=== PATIENT | female | born 1955 | race Caucasian/White ===

== ENCOUNTER 2025-05-12 15:12 | Outpatient (CLI) | payer MEDICARE, OTHER, SELFPAY ==
[2025-05-12 15:49] LABS: Hematocrit 40.4 % (37.0-47.0); Hemoglobin 13.3 g/dL (12.0-15.0); Mean Corpuscular HGB Conc 32.9 g/dl (32-36); Mean Corpuscular Hemoglobin 29.7 pg (26-34); Mean Corpuscular Volume 90.2 fl (80-100); Platelet Count Result 343 k/mm3 (150-375); Red Blood Count 4.48 M/mm3 (4.2-5.4); White Blood Count 10.6 K/mm3 (4.5-10.0)
[2025-05-12 16:00] LABS: Anion Gap 8 mmol/L (4-12); Blood Urea Nitrogen 21 mg/dL (7-17); Calcium 9.6 mg/dL (8.4-10.2); Carbon Dioxide 29 mmol/L (22-30); Chloride 103 mmol/L (98-107); Estimated Glomerular Filt Rate > 60; Glucose 97 mg/dL (65-110); Potassium 4.0 mmol/L (3.4-5.0); Sodium 140 mmol/L (137-145)
--- OUTSIDE RECORDS SUMMARY | 2025-05-12 17:25 | XMS_ITS | Encounter Summary ---
Author Organization [facility] Address [address] [place] [address] Care Team Providers Care Grating Machine Operator Name Role Phone None, Physician Primary Care Provider Unavailabl e Encounter Details Date Type Department Care Team (Late st Contact Info) Description 04/22/2025 Results Follow-Up ER at [address] [address] Hafsa Molina PA-C [address] [place] [phone] Social History Tobacco Use Types Packs/Day Years Used Date Smoking Tobacco: Never Assessed Comments Unknown Sex and Gender Information Value Date Recorded Sex Assigned at Female 04/21/2025 10:55 AM CDT Legal Sex Female 4:46 AM RESEARCH QUALITY ASSURANCE ANALYST Gender Identity Female 04/21/2025 10:55 AM CDT Sexual Orientation Not on file documented as of this encounter Plan of Treatment Not on file documented as of this encounter Visit Diagnoses Not on filedocumented in this encounter Care Teams Grating Machine Operator Relationship Specialty Start Date End Date None, Physician PCP - General 04/21/25 documented as of this encounter
--- OUTSIDE RECORDS SUMMARY | 2025-05-12 17:25 | XMS_ITS | Clinical Summary ---
Author Organization [facility] Address [address] [place] [address] Care Team Providers Care Ski Binding Fitter And Repairer Name Role Phone FinneyAndrew martinez Primary Care Provider [phone] Allergies No known active allergies Medications ACID LOW VOLTAGE ELECTRICIAN, CIMETIDINE, ORAL Take 1 Tablet by mouth daily. prn Active fluticasone propionate (FLONASE) 50 mcg/spray [place], Suspension nasal inhaler Administer 2 Sprays in each nostril daily. Active fexofenadine (SAMMI) 180 mg tablet Take 180 mg by mouth daily. Active CALCIUM ACETATE ORAL Take by mouth daily. Active multivitamin (DAILY-KERRY) tablet Take 1 Tablet by mouth daily. Active cloNIDine HCL (CATAPRES) 0.1 mg tabletIndicati ons:Essential hypertension, benign TAKE 1 TABLET BY MOUTH THREE TIMES A DAY 300 Tablet 3 10/05/19 25 Active hydroCHLOROthi azide (MICROZIDE) 12.5 mg capsuleIndicat ions:Essential hypertension, benign TAKE 1 CAPSULE BY MOUTH EVERY DAY 100 Capsule 3 01/01/20 25 Active losartan (COZAAR) 100 mg tabletIndicati ons:Essential hypertension, benign TAKE 1 TABLET BY MOUTH EVERY DAY 100 Tablet 3 01/01/20 25 Active dilTIAZem (CARDIZEM CD) 360 mg Controlled Delivery 24 hour capsuleIndicat ions:Essential hypertension, benign TAKE 1 CAPSULE BY MOUTH EVERY DAY 100 Capsule 3 03/29/20 25 Active magnesium OXIDE (MAG-OX) 400 mg (241.3 mg magnesium) tabletIndicati ons:Paresthesi a of both legs TAKE 1 TABLET BY MOUTH EVERYDAY AT BEDTIME 90 Tablet 04/15/20 25 Active magnesium oxide 400 mg magnesium TabletIndicati ons:Paresthesi a of both legs Take 400 mg by mouth daily at bedtime. 90 Tablet 5 04/14/20 24 025 Discontinued Active Problems Problem Noted Date Diagnosed Date White coat syndrome with diagnosis of hypertensi on 12/10/2023 Mixed hyperlipidemia 05/24/2020 Essential hypertension, benign 03/06/2016 Environmental allergies 03/06/2016 Resolved Problems Problem Noted Date Diagnosed Date Resolved Date Prediabetes 06/11/2019 06/09/2024 Overview (06/11/2019): Lab Results Component Value Date/Time HGBA1C 5.8 (H) 06/10/2019 09:04 AM Encounters Date Type Department Care Team Description 05/10/2025 External Device Data STL ABSTRACTION Provider, Abstract 05/03/2025 External Device Data [facility] ABSTRACTION Provider, Abstract 04/21/[address] [address] Andrew Finney, Remote Monitoring 04/15/[address] [address] Andrew Finney, Paresthesia of both legs 03/29/[address] [address] Andrew Finney, Essential hypertension, benign 03/02/2025 External Device Data [facility] ABSTRACTION Provider, Abstract 03/01/2025 External Device Data [facility] ABSTRACTION Provider, Abstract from Last 3 Months Immunizations Immunization Administration Dates Next Due INFLUENZA VACCINE HIGH DOSE QUADRIVALENT 65 YR UP PF IM 04/28/2023,06/20/2021,05/24/2020 INFLUENZA VACCINE HIGH DOSE TRIVALENT SPLIT VIRUS, (65 YR UP), 0.5ML (PF), IM 06/09/2024 Skin Test TB 12/09/2014 Family History Medical History Relation Name Comments Healthy Daughter 1 none Uterine or Endometrial Cance r, Not Including Cervical Daughter 1 none Healthy Daughter 2 Other Father Rubin trejo murdered Stroke Maternal Grandmother Breast Cancer Mother luana trejo Hypertension Mother luana trejo Ovarian Cancer Mother luana trejo Uterine Cancer Mother luana trejo Uterine or Endometrial Cance r, Not Including Cervical Mother luana trejo Breast Cancer Paternal Grandmother karolina trejo Cancer Paternal Grandmother karolina trejo Uterine or Endometrial Cance r, Not Including Cervical Paternal Grandmother karolina trejo Breast Cancer Sister Cheyenne Song Uterine or Endometrial Cance r, Not Including Cervical Sister Cheyenne Song Healthy Son Colon Cancer Neg Hx Relation Name Status Comments Daughter 1 none Alive Daughter 2 Alive Father Rubin trejo Maternal Grandfather Maternal Grandmother Mother luana trejo Alive Paternal Grandfather Paternal Grandmother karolina trejo Sister Cheyenne Song Son Alive Social History Tobacco Use Types Packs/Day Years Used Date Smoking Tobacco: Never Smokeless Tobacco: Never Tobacco Cessation:Counseling Given: Not Answered Alcohol Use Standard Drinks/Week Comments Not Currently 0 (1 standard drink = 0.6 oz pur e alcohol) Feeling Safe Answer Date Recorded Within the last year, have y ou been afraid of your partner or ex-partner? No 02/11/2024 Emotionally Abused Not on file 02/11/2024 Within the last year, have y ou been kicked, hit, slapped, or otherwise physically hurt by your partner or ex-partner? No 02/11/2024 Sexually Abused Not on file 02/11/2024 Financial Resource Strain Answer Date R ecorded How hard is it for you to pa y for the very basics like food, housing, medical care, and heating? Not hard at all 08/27/2022 Food Insecurity Answer Date Recorded In the past 12 months, have you worried that your food would run out before you had money to buy more? Never true 08/27/2022 In the past 12 months, did y ou run out of food and didn't have money to buy more? Never true 08/27/2022 Transportation Needs Answer Date Record ed In the past 12 months, has l ack of transportation kept you from medical appointments or from getting medications? No 08/27/2022 Lack of Transportation (Non-Medical) Not on file 08/27/2022 Feeling Safe Answer Date Recorded Do you worry about feeling s afe and happy with the people in your life? No 09/13/2024 Feeling Safe Answer Date Recorded Are you in a relationship wi th someone who hurts you emotionally and/or physically? No 01/14/2024 Comments No Sex and Gender Information Value Date Recorded Sex Assigned at Not on file Legal Sex Female 5:48 PM CDT Gender Identity Not on file Sexual Orientation Not on file Last Filed Vital Signs Vital Sign Reading Time Taken Comments Blood Pressure 153/76 12/09/2024 8:50 AM CDT Pulse 84 12/09/2024 8:37 AM CDT Temperature 36.6 C (97.8 F) 12/09/2024 8:37 AM CDT Respiratory Rate 18 12/09/2024 8:37 AM CDT Oxygen Saturation 96% 12/09/2024 8:37 AM CDT Inhaled Oxygen Concentration - - Weight 54 kg (119 lb) 12/09/2024 8:37 AM CDT Height 154.9 cm (5' 1) 12/09/2024 8:37 AM CDT Body Mass Index 22.48 12/09/2024 8:37 AM CDT Plan of Treatment Upcoming Encounters Date Type Department Care Team (Late st Contact Info) Description 06/10/2025 8:00 AM CDT Office Visit [facility] Family Medicine [place] [address] [place] [address] Viola Mcclain PA-C [address] [place] [address] 09/14/2025 12:00 PM HOTEL BREAKFAST ATTENDANT Appointment [facility] [address] [place] [address] Marisa Delacruz, ROSEMARIE [address] [place] [address] 09/14/2025 12:45 PM HOTEL BREAKFAST ATTENDANT Office Visit [facility] Breast Surgery [address] [place] [address] Marisa Delacruz, ROSEMARIE [address] [place] [address] Health Maintenance Due Date Last Done Comments DTAP/TDAP/TD VACCINES (1 - Tdap) 1972 FIT/FOBT Q 1 year 1998 Flex Sig/CT Colonography Q 5 years 1998 PNEUMOCOCCAL VACCINE 50+ YEA RS (1 of 1 - PCV) 2003 ZOSTER VACCINE (1 of 2) 2003 OSTEOPOROSIS SCREENING 2018 Traditional Medicare (ACO) A nnual Wellness Visit 12/10/2024 12/10/2023, 08/27/2022 INFLUENZA VACCINE (#1) 2025 , 04/28/2023, 06/20/2021, Additional history exists BREAST CANCER SCREENING 09/13/2025 09/13/19, 02/11/2024, 08/15/2023, Additional history exists FIT-DNA Q 3 years 12/23/2026 12/24/2023 COLORECTAL SCREENING 01/13/2027 01/14/2024, 01/14/20 24 Colorectal Cancer Screening 01/13/2027 RSV VACCINE (60+ or ) (1 - 1-dose 75+ series) 2028 Procedures Procedure Name Priority Date/Time Associated Diagnosis Comments MAMMO 3D BRIA DIAGNOSTIC BILAT W OR WO CAD Routine 09/13/2024 12:57 PM HOTEL BREAKFAST ATTENDANT Abnormal mammogram of right breast COLONOSCOPY REPORT 01/14/2024 8: 48 AM CDT COLON CANCER SCREEN, STOOL DNA Routine 12/24/2023 7:30 PM CDT Encounter for colorectal cancer screening from Last 3 Months or Most Recently Relevant to Health Maintenance Results * MAMMO 3D BRIA DIAGNOSTIC BILAT W OR WO CAD (09/13/2024 12:57 PM HOTEL BREAKFAST ATTENDANT) Anatomical Region Laterality Modality Breast Bilateral Mammography 09/13/2024 12:5 8 PM HOTEL BREAKFAST ATTENDANT Impressions 09/13/2024 1:11 PM HOTEL BREAKFAST ATTENDANT IMPRESSION: No evidence of malignancy in either breast. Normal morphology intramammary lymph node in the upper outer right breast is unchanged and benign. OVERALL FINAL ASSESSMENT: BI-RADS Category 2: Benign finding(s). RECOMMENDATION: Bilateral screening mammogram in one year. Findings discussed with the patient. DICTATION LOCATION: [facility] Becerra Narrative 09/13/2024 1:11 PM HOTEL BREAKFAST ATTENDANT BILATERAL DIGITAL DIAGNOSTIC MAMMOGRAM WITH TOMOSYNTHESIS AND CAD TECHNIQUE: Images were performed using 2D full field digital mammography with 3D tomosynthesis images. CAD analysis was performed. DATE: 09/13/2024 12:57 PM HISTORY: Short-term follow-up for probably benign finding in the right breast. COMPARISON: Right breast ultrasound on 02/11/2024 and 08/15/2023. Prior mammograms, most recently 02/11/2024 and dating back to 07/25/2023. BREAST COMPOSITION: There are scattered areas of fibroglandular density. FINDINGS: Additional spot compression tomosynthesis images of the right breast were obtained. In the upper outer right breast middle depth, there is an unchanged small normal morphology intramammary lymph node. There is no suspicious mass, clustered microcalcification, or architectural distortion in either breast on 2D or tomosynthesis images. There has been no change in the mammographic appearance compared with the prior study. us Marisa Delacruz [facility] MAMMO ORDERABLES Final Re sult * COLONOSCOPY REPORT (01/14/2024 8:48 AM CDT) Narrative Procedure Note Laura Pro MD - 01/14/2024 8:48 AM CDT [facility] Endoscopy Patient Name: Rosy Espinoza Procedure Date: 01/14/2024 Date of : 1955 Age: 68 Attending MD: Laura Pro MD, Procedure: Colonoscopy Indications: Positive Cologuard test Providers: Laura Pro MD Referring MD: Andrew Finney MD Medicines: Monitored Anesthesia Care Procedure: Informed consent was obtained for the procedure, including moderate sedation after risks were discussed. Based on the pre-procedure assessment, including review of the patient's medical history, medications, allergies, and review of systems, the patient was deemed to be an appropriate candidate for sedation. A timeout was performed. Continuous ECG monitoring, pulse oximetry, blood pressure monitoring, and direct observation were performed. The Colonoscope was introduced through the anus and advanced to the cecum, identified by appendiceal orifice and ileocecal valve. The colonoscopy was performed without difficulty. The patient tolerated the procedure well. The quality of the bowel preparation was adequate to identify polyps. The quality of the bowel preparation was evaluated using the BBPS ([place] Bowel Preparation Scale) with scores of: Right Colon = 2, Transverse Colon = 3 and Left Colon = 3. The total BBPS score equals 8. The ileocecal valve, appendiceal orifice, and rectum were photographed. Estimated Blood Loss: Estimated blood loss: none. Findings: The perianal and digital rectal examinations were normal. A 12 mm polyp was found in the cecum. The polyp was flat. The polyp was removed with a cold snare. Resection and retrieval were complete. A 5 mm polyp was found in the ascending colon. The polyp was sessile. The polyp was removed with a cold snare. Resection and retrieval were complete. A 5 mm polyp was found in the descending colon. The polyp was sessile. The polyp was removed with a cold snare. Resection and retrieval were complete. Two sessile polyps were found in the rectum. The polyps were 1 to 2 mm in size. These polyps were removed with a cold biopsy forceps. Resection and retrieval were complete. Multiple small-mouthed diverticula were found in the sigmoid colon and descending colon. External hemorrhoids were found during retroflexion. The hemorrhoids were small. Complications: No immediate complications. Impression: - One 12 mm polyp in the cecum, removed with a cold snare. Resected and retrieved. - One 5 mm polyp in the ascending colon, removed with a cold snare. Resected and retrieved. - One 5 mm polyp in the descending colon, removed with a cold snare. Resected and retrieved. - Two 1 to 2 mm polyps in the rectum, removed with a cold biopsy forceps. Resected and retrieved. - Diverticulosis in the sigmoid colon and in the descending colon. - External hemorrhoids. Recommendation: - Await pathology results. - Repeat colonoscopy in 3 years for surveillance based on pathology results. Laura Pro MD 01/14/2024 8:47:53 AM This report has been signed electronically. Number of Addenda: 0 Procedure Date: 01/14/2024 8:05:42 AM [id number] [address] Laura Pro MD GI PROCEDURE ORDERABLES Final Re sult * (ABNORMAL) COLON CANCER SCREEN, STOOL DNA (12/24/2023 7:30 PM CDT) COLOGUARD RESULT Positive( A) Negative [facility] Comment: POSITIVE TEST RESULT. A positive Cologuard result should be followed with a colonoscopy or visual examination of the colon. The normal value (reference range) for this assay is negative. TEST DESCRIPTION: Composite algorithmic analysis of stool DNA-biomarkers with hemoglobin immunoassay. Quantitative values of individual biomarkers are not reportable and are not associated with individual biomarker result reference ranges. Cologuard is intended for colorectal cancer screening of adults of either sex, 45 years or older, who are at average-risk for colorectal cancer (CRC). Cologuard has been approved for use by the U.S. FDA. The performance of Cologuard was established in a cross sectional study of average-risk adults aged 50-84. Cologuard performance in patients ages 45 to 49 years was estimated by sub-group analysis of near-age groups. Colonoscopies performed for a positive result may find as the most clinically significant lesion: colorectal cancer [4.0%], advanced adenoma (including sessile serrated polyps greater than or equal to 1cm diameter) [20%] or non- advanced adenoma [31%]; or no colorectal neoplasia [45%]. These estimates are derived from a prospective cross-sectional screening study of 10,000 individuals at average risk for colorectal cancer who were screened with both Cologuard and colonoscopy. (Salina Helm al, N Engl J Med 2014;370(14):1894-9417.) Cologuard may produce a false negative or false positive result (no colorectal cancer or precancerous polyp present at colonoscopy follow up). A negative Cologuard test result does not guarantee the absence of CRC or advanced adenoma (pre-cancer). The current Cologuard screening interval is every 3 years. ([place] [employer] Society and U.S. Multi-Society Task Force). Cologuard performance data in a 10,000 patient pivotal study using colonoscopy as the reference method can be accessed at the following location: www.exactlabs.com/results. Additional description of the Cologuard test process, warnings and precautions can be found at www.cologuard.com. Stool STOOL SPECIMEN / Unknown 12/24/2023 7:30 PM CDT 12/25/2023 5:10 PM CDT us Andrew Finney DO BODY FLUIDS AND STOOLS Final R esult [facility] CLIA # [id number] [address], [address] [place] [address] from Last 3 Months or Most Recently Relevant to Health Maintenance Insurance MEDICARE PART A AND B [facility] MEDICARE PART A AND B GENERIC PAYOR Advance Directives For more information, please contact: [phone] * Full Code (Latest Code Status on File) Date Activated Date Inactivated Comments 01/14/2024 7:03 AM 01/14/2024 11:39 AM Care Teams Ski Binding Fitter And Repairer Relationship Specialty Start Date End Date Andrew Finney DO [address] [place] [address] PCP - General Family Practice 08/26/22
--- OUTSIDE RECORDS SUMMARY | 2025-05-12 17:25 | XMS_ITS | Encounter Summary ---
Author Organization [facility] Address [address] [place] [address] Care Team Providers Care Photogrammetric Surveyor Name Role Phone Andrew Finney Primary Care Provider [phone] Encounter Details Date Type Department Care Team (Late st Contact Info) Description 05/10/2025 External Device Data ST[facility] ABSTRACTION Provider, Abstract NO ADDRESS ON FILE Social History Tobacco Use Types Packs/Day Years Used Date Smoking Tobacco: Never Smokeless Tobacco: Never Alcohol Use Standard Drinks/Week Comments Not Currently [...] on file Sexual Orientation Not on file documented as of this encounter Plan of Treatment Upcoming Encounters Date Type Department Care Team (Late st Contact Info) Description 06/10/2025 8:00 AM CDT Office Visit [facility] Medicine [place] [address] [place] [address] Viola Mcclain PA-C [address] [place] [address] 09/14/2025 12:00 PM MEAT CLERK Appointment [facility] [address] Becerra [address] [place] [address] Marisa Delacruz, CATHETER FINISHER AND INSPECTOR [address] [place] [address] 09/14/2025 12:45 PM MEAT CLERK Office Visit [facility] Breast Surgery [address] Bec[address] [place] [address] Marisa Delacruz, CATHETER FINISHER AND INSPECTOR [address] [place] [address] documented as of this encounter Visit Diagnoses Not on filedocumented in this encounter Care Teams Photogrammetric Surveyor Relationship Specialty Start Date End Date Andrew Finney DO [address] [place] [address] [place] [address] PCP - General Family Practice 08/26/22 documented as of this encounter
--- OUTSIDE RECORDS SUMMARY | 2025-05-12 17:25 | XMS_ITS | Clinical Summary ---
Author Organization [facility] Address [address] [place] [address] Care Team Providers Care Athletic Coordinator Name Role Phone None, Physician Primary Care Provider Unavailabl e Source Comments [facility],non-owned Affiliates and Associated Physician Practices is amultiple site organization consisting of ambulatory clinics and hospital sitesin [place], [place], [place] and [place]. This disclosure is being madepursuant to the Care Everywhere program and may not contain all information available regarding this patient. Last updated 18.[facility] Allergies No known active allergies Encounters Date Type Department Care Team Description 04/22/2025 Results Follow-Up ER at [address] [address] Hafsa Molina PA-C 04/21/2025 4:40 PM CDT - 04/21/2025 5:03 PM CDT Emergency ER at [address] [address] Tulio Brooke MD Postmenopausal vaginal bleeding Discharge Disposition: Home or Self Care 04/21/2025 Travel from Last 3 Months Social History Tobacco Use Types Packs/Day Years Used Date Smoking Tobacco: Never Assessed Comments Unknown Sex and Gender Information Value Date Recorded Sex Assigned at Female 04/21/2025 10:55 AM CDT Legal Sex Female 4:46 AM [employer] Gender Identity Female 04/21/2025 10:55 AM CDT Sexual Orientation Not on file Last Filed Vital Signs Vital Sign Reading Time Taken Comments Blood Pressure 154/94 04/21/2025 5:02 PM CDT Pulse 97 04/21/2025 10:21 AM CDT Temperature 36.4 C (97.6 F) 04/21/2025 10:21 AM CDT Respiratory Rate 18 04/21/2025 10:21 AM CDT Oxygen Saturation 99% 04/21/2025 10:21 AM CDT Inhaled Oxygen Concentration - - Weight 54.4 kg (120 lb) 04/21/2025 10:21 AM CDT Height 157.5 cm (5' 2) 04/21/2025 10:21 AM CDT Body Mass Index 21.95 04/21/2025 10:21 AM CDT Plan of Treatment Health Maintenance Due Date Last Done Comments BONE DENSITY TESTING 1955 COLON MONITORING 1955 COLONOSCOPY - COLON CA SCREENING 1955 CT COLONOGRAPHY - COLON CA SCREENING 1955 FIT - COLON CA SCREENING 1955 FLEX SIG - COLON CA SCREENING 1955 LIPID TESTING 1955 MEDICARE AWV 12 MONTHS 1955 HEPATITIS C SCREENING 06/09/1971 DTAP/TDAP/TD VACCINES (1 - Tdap) 1972 PNEUMOCOCCAL VACCINE 50+ (1 of 1 - PCV) 2003 ZOSTER VACCINE (1 of 2) 2003 DEPRESSION SCREENING 08/18/2024 COVID-19 VACCINE (1 - 2023-2 5 season) 2025 INFLUENZA VACCINE (#1) 2025 , 04/28/2023, 06/20/2021 MAMMOGRAM 09/13/2026 09/13/2024, 09/13/2024, 07/25/2023 COLOGUARD (AGES 45-75) - COL ON CA SCREENING 12/23/2026 12/24/2023 Colorectal Cancer Screening 12/23/2026 Respiratory Syncytial Virus (RSV) Vaccine Pt: or over 60 yrs (1 - 1-dose 75+ series) 2028 HEPATITIS B VACCINE Aged Out No longe r eligible based on patient's age to complete this topic HIB VACCINE Aged Out No longer eligi ble based on patient's age to complete this topic HPV VACCINE Aged Out No longer eligi ble based on patient's age to complete this topic MENINGOCOCCAL (Group B) VACCINE SHARED DECISION-MAKING Aged Out No longer eligible based on patient's age to complete this topic MENINGOCOCCAL GROUPS A/C/Y/W VACCINE Aged Out No longer eligible b ased on patient's age to complete this topic Procedures Procedure Name Priority Date/Time Associated Diagnosis Comments US PELVIS W TRANSVAG NON OB STAT 04/21/2025 2:27 PM CDT Postmenopausal vaginal bleeding URINALYSIS REFLEX MICROSCOPIC REFLEX CULTURE STAT 04/21/2025 1:20 PM CDT CULTURE URINE STAT 04/21/2025 1:20 PM CDT BLOOD TYPE VERIFICATION STAT 04/21/2025 11:28 AM CDT TYPE + SCREEN PANEL STAT 04/21/2025 1 0:52 AM CDT CBC W AUTO DIFFERENTIAL STAT 04/21/2025 10:52 AM CDT BASIC METABOLIC PANEL (CALCIUM TOTAL) STAT 04/21/2025 10:52 AM CDT from Last 3 Months Results * US Pelvis W Transvag Non Ob (04/21/2025 2:27 PM CDT) Anatomical Region Laterality Modality Pelvis Ultrasound 04/21/2025 2:50 PM CDT Impressions 04/21/2025 2:58 PM CDT IMPRESSION: No sonographic evidence of suspicious adnexal mass. No sonographic evidence of suspicious uterine mass. No sonographic explanation for patient's symptoms RECOMMENDATION: Clinical or imaging follow-up of these findings should be considered under the direction of a/the treating CRYSTAL EVALUATOR. > Interpreting Provider: Ric Rutledge MD on 04/21/2025 2:58 PM Narrative 04/21/2025 2:58 PM CDT Transabdominal and transvaginal pelvic ultrasound PROCEDURE: US PELVIS W TRANSVAG NON OB COMPARISON: No relevant available comparison. CLINICAL INFORMATION (none relevant/not provided if blank): Indication: N95.0: Postmenopausal vaginal bleeding Additional History: TECHNIQUE: Real time transabdominal and transvaginal pelvic ultrasound was performed by the appraiser with DICOM image capture. FINDINGS: Measurements: Uterus, cm: 4.5 x 2.5 x 4.0 Endometrial complex, mm: 3 Right Ovary, cm: 1.3 maximum Left Ovary, cm: 1.6 maximum Uterus: 18 mm calcified fundal fibroid. 6 x 8 mm anterior mid body fibroid. No significant subendometrial component identified. Overall, no suspicious uterine masses identified. Right: No suspicious adnexal lesions. Left: No suspicious adnexal lesions. No evidence of significant free intraperitoneal fluid. Procedure Note Ric Rutledge MD - 04/21/2025 Transabdominal and transvaginal pelvic ultrasound PROCEDURE: US PELVIS W TRANSVAG NON OB COMPARISON: No relevant available comparison. CLINICAL INFORMATION (none relevant/not provided if blank): Indication: N95.0: Postmenopausal vaginal bleeding Additional History: TECHNIQUE: Real time transabdominal and transvaginal pelvic ultrasound wasperformed by the appraiser with DICOM image capture. FINDINGS: Measurements: Uterus, cm: 4.5 x 2.5 x 4.0 Endometrial complex, mm: 3 Right Ovary, cm: 1.3 maximum Left Ovary, cm: 1.6 maximum Uterus: 18 mm calcified fundal fibroid. 6 x 8 mm anterior mid bodyfibroid. No significant subendometrial component identified. Overall, nosuspicious uterine masses identified. Right: No suspicious adnexal lesions. Left: No suspicious adnexal lesions. No evidence of significant free intraperitoneal fluid. IMPRESSION: No sonographic evidence of suspicious adnexal mass. No sonographic evidence of suspicious uterine mass. No sonographic explanation for patient's symptoms RECOMMENDATION: Clinical or imaging follow-up of these findings shouldbe considered under the direction of a/the treating CRYSTAL EVALUATOR. > Interpreting Provider: Ric Rutledge MD on 04/21/2025 2:58 PM us Goran Turner DO US ORDERABLES Final Result * (ABNORMAL) URINALYSIS REFLEX MICROSCOPIC REFLEX CULTURE (04/21/2025 1:20 PM CDT) Color UA Yellow Yellow, Straw 04/21/2025 1:59 PM CDT [facility] Clarity UA Clear Clear 04/21/2025 1:59 PM CDT [facility] Glucose UA Normal Normal 04/21/2025 1:59 PM CDT [facility] Bilirubin UA Negative Negative 04/21/2025 1:59 PM CDT [facility] Ketone UA Negative Negative 04/21/2025 1:59 PM CDT [facility] Specific [place] UA 1.007 1.005 - 1.030 04/21/2025 1:59 PM CDT [facility] Blood UA 1+(A) Negative 04/21/2025 1:59 PM CDT [facility] pH UA 7.0 5.0 - 8.0 04/21/2025 1:59 PM CDT [facility] Protein UA Negative Negative 04/21/2025 1:59 PM CDT [facility] Urobilinogen UA Normal Normal mg/dL 04/21/2025 1:59 PM CDT [facility] Nitrite UA Positive(A) Negative 04/21/2025 1:59 PM CDT [facility] Leukocyte Esterase UA Negative Negative 04/21/2025 1:59 PM CDT [facility] RBC UA 6-10(A) 0 - 5 # /hpf 04/21/2025 1:59 PM CDT [facility] WBC UA 0-5 0 - 5 # /hpf 04/21/2025 1:59 PM CDT [facility] Bacteria UA 1+(A) None Seen 04/21/2025 1:59 PM CDT [facility] Squamous Epithelial Cells 0-2 0 - 5 /hpf 04/21/2025 1:59 PM CDT [facility] Mucus UA 1+ /LPF 04/21/2025 1:59 PM CDT [facility] Reflex Status Culture to follow 04/21/2025 1:59 PM CDT [facility] Urine URINE SPECIMEN OBTAINED BY CLEAN CATCH PROCEDURE / Unknown Collection / Unknown 04/21/2025 1:20 PM CDT 04/21/2025 1:31 PM CDT Tulio Brooke MD LAB - URINALYSIS ORDERABLES Lubna sia Result [facility] [address] [place] [id number] * (ABNORMAL) CULTURE URINE (04/21/2025 1:20 PM CDT) Pathologist [facility] Culture Urine >100,000 CFU/mL Escherichia coli(A) SUNDEEP 04/23/2025 2:[address] [facility] Urine URINE SPECIMEN OBTAINED BY CLEAN CATCH PROCEDURE / Unknown Collection / Unknown 04/21/2025 1:20 PM CDT 04/21/2025 1:[address] [facility] - 04/23/2025 2:56 AM CDT Organism Antibiotic Method Susceptibility Escherichia coli Amikacin SUNDEEP 4 ug/mL: Susceptible Escherichia coli Ampicillin SUNDEEP <=2 ug/mL: Susceptible Escherichia coli Ampicillin-sulbactam SUNDEEP <=2 ug/mL: Susceptible Escherichia coli Cefazolin SUNDEEP <=4 ug/mL: See Comment* Escherichia coli Cefazolin-Urine (uncomplicated infections ONLY) SUNDEEP <=4 ug/mL: Susceptible Escherichia coli Cefepime SUNDEEP <=1 ug/mL: Susceptible Escherichia coli Ceftriaxone SUNDEEP <=1 ug/mL: Susceptible Escherichia coli Ciprofloxacin SUNDEEP <=0.25 ug/mL: Susceptible Escherichia coli Gentamicin SUNDEEP <=1 ug/mL: Susceptible Escherichia coli Meropenem SUNDEEP <=0.25 ug/mL: Susceptible Escherichia coli Nitrofurantoin SUNDEEP <=16 ug/mL: Susceptible Escherichia coli Piperacillin-tazobactam SUNDEEP <=4 ug/mL: Susceptible Escherichia coli Tobramycin SUNDEEP <=1 ug/mL: Susceptible Escherichia coli Trimethoprim-sulfame thoxaz ole SUNDEEP <=20 ug/mL: Susceptible Comment: *Cefazolin SUNDEEP of </=4 cannot distinguish between susceptible or intermediate for systemic breakpoints. If further defined interpretation is needed, call Microbiology and a disk diffusion test will be performed. Urine breakpoints for cefazolin should only be used when treating uncomplicated UTIs including men and women without urologic abnormality, kidney stones, stents, nephrostomy tubes, signs/symptoms of systemic illness, or pelvic/perineal pain in men. Cefazolin results can be used to predict susceptibility to oral cephalosporins - cephalexin, cefprozil, cefaclor, cefuroxime, cefdinir, and cefpodoxime. For complicated UTIs, use alternative cefazolin susceptibility result above. Tulio Brooke MD LAB - MICROBIOLOGY ORDERABLES Fi nal Result Performing Organization Address City/[facility]/ZIP Co de Phone Number [facility] [address] [place] [address], [facility] [phone] * BLOOD TYPE VERIFICATION (04/21/2025 11:28 AM CDT) ABO Rh O POS 04/21/2025 12:47 PM CDT [facility] Blood Bank BLOOD SPECIMEN / Unknown Venipuncture / Unknown 04/21/2025 11:28 AM CDT 04/21/2025 11:38 AM CDT Naveed Potts DO LAB - BLOOD BANK ORDERABLES Fin al Result Performing Organization Address [facility] de Phone Number [facility] [address] [address], [facility] [phone] * TYPE + SCREEN PANEL (04/21/2025 10:52 AM CDT) ABO Rh O POS 04/21/2025 12:47 PM CDT [facility] Comment:No history; collect retype. Antibody Screen NEG 12:47 PM CDT [facility] Blood Bank BLOOD SPECIMEN / Unknown Venipuncture / Unknown 04/21/2025 10:52 AM CDT 04/21/2025 11:10 AM CDT Tulio Brooke MD LAB - BLOOD BANK ORDERABLES Lubna l Result Performing Organization Address City/[facility] Co de Phone Number [facility] [address] [place] [address] * CBC W AUTO DIFFERENTIAL (04/21/2025 10:52 AM CDT) WBC 10.6 4.0 - 10.7 x10E9/L 04/21/2025 11:16 AM CDT [facility] RBC Count 4.85 3.90 - 5.20 x10E12/L 04/21/2025 11:16 AM CDT [facility] Hemoglobin 14.4 11.9 - 15.8 g/dL 04/21/2025 11:16 AM CDT [facility] Hematocrit 44.0 34.8 - 46.1 % 04/21/2025 11:16 AM CDT [facility] MCV 90.7 80.0 - 98.0 fL 04/21/2025 11:16 AM CDT [facility] MCH 29.7 26.7 - 33.6 pg 04/21/2025 11:16 AM CDT [facility] MCHC 32.7 31.7 - 36.3 g/dL 04/21/2025 11:16 AM CDT [facility] RDW-CV 12.2 11.3 - 14.8 % 04/21/2025 11:16 AM CDT [facility] Platelet Count 332 150 - 420 x10E9/L 04/21/2025 11:16 AM CDT [facility] MPV 9.4 7.8 - 11.4 fL 04/21/2025 11:16 AM CDT [facility] Neutrophil % 56.7 41.0 - 74.0 % 04/21/2025 11:16 AM CDT [facility] Lymphocyte % 33.7 17.0 - 47.0 % 04/21/2025 11:16 AM CDT [facility] Monocyte % 6.1 3.0 - 11.0 % 04/21/2025 11:16 AM CDT [facility] Eosinophil % 2.4 0.0 - 7.0 % 04/21/2025 11:16 AM CDT [facility] Basophil % 0.5 0.0 - 1.6 % 04/21/2025 11:16 AM CDT [facility] Immature Granulocytes % 0.6 0.0 - 1.0 % 04/21/2025 11:16 AM CDT [facility] Neutrophil Absolute 6.00 1.60 - 7.50 x10E9/L 04/21/2025 11:16 AM CDT [facility] Lymphocyte Absolute 3.56 1.00 - 4.40 x10E9/L 04/21/2025 11:16 AM CDT [facility] Monocyte Absolute 0.64 0.15 - 1.00 x10E9/L 04/21/2025 11:16 AM CDT [facility] Eosinophil Absolute 0.25 0.00 - 0.60 x10E9/L 04/21/2025 11:16 AM CDT [facility] Basophil Absolute 0.05 0.00 - 0.13 x10E9/L 04/21/2025 11:16 AM CDT [facility] Blood BLOOD SPECIMEN / Unknown Venipuncture / Unknown 04/21/2025 10:52 AM CDT 04/21/2025 11:10 AM CDT us Tulio Brooke MD LAB - HEMATOLOGY ORDERABLES Lubna stovall Result [facility] [address] [place], [place] [id number] * (ABNORMAL) BASIC METABOLIC PANEL (CALCIUM TOTAL) (04/21/2025 10:52 AM CDT) [facility] Glucose 98 70 - 99 mg/dL 04/21/2025 11:30 AM CDT [facility] Sodium 142 136 - 145 mmol/L 04/21/2025 11:30 AM CDT [facility] Potassium 3.8 3.5 - 5.1 mmol/L 04/21/2025 11:30 AM CDT [facility] Chloride 106 98 - 107 mmol/L 04/21/2025 11:30 AM CDT [facility] CO2 23 22 - 29 mmol/L 04/21/2025 11:30 AM CDT [facility] Calcium 10.1 8.4 - 10.4 mg/dL 04/21/2025 11:30 AM CDT [facility] Anion Gap 13 6 - 16 mmol/L 04/21/2025 11:30 AM CDT [facility] BUN 16 7 - 26 mg/dL 04/21/2025 11:30 AM CDT [facility] Creatinine 0.76 0.57 - 1.11 mg/dL 04/21/2025 11:30 AM CDT [facility] eGFR by CKD-EPI 84(L) >=90 mL/min/1.7 3 m2 04/21/2025 11:30 AM CDT [facility] Comment:Estimated Glomerular Filtration Rate (eGFR) calculated using the CKD-EPI Creatinine Equation (2020), per the National Kidney Foundation and [place] [employer] recommendations. Blood BLOOD SPECIMEN / Unknown Venipuncture / Unknown 04/21/2025 10:52 AM CDT 04/21/2025 11:10 AM CDT Tulio Brooke MD LAB - CHEMISTRY ORDERABLES Final Result [facility] [address] [place] [address] from Last 3 Months Insurance MEDICARE [employer] [place] Care Teams Athletic Coordinator Relationship Specialty Start Date End Date None, Physician PCP - General 04/21/25
== END 2025-05-12 15:13 | disposition home or self-care (01) ==
PROVIDERS: Anesthesiology; Visit Provider Obstetrics & Gynecology
DX: N95.0 Postmenopausal bleeding (principal); Z79.899 Other long term (current) drug therapy; Z01.818 Encounter for other preprocedural examination
CPT/HCPCS: 36415; 80048; 85027

== ENCOUNTER 2025-05-19 00:42 | Day surgery (SDC) | payer MEDICARE, OTHER, SELFPAY ==
[2025-05-11 15:27] VITALS: BMI 21.9
--- NOTE | 2025-05-11 15:34 | PC.NURSE ---
[facility] has started construction of its new state of the art ER which will open Spring 2026. With this, we anticipate parking may be a challenge for some our surgical patients and families. Parking spaces are limited but are available for all Surgical, obstetrics, and ER patients sharing this lot. If you arrive and find you are having a hard time finding a parking space, please note that we understand the challenges, please drive around the hospital and park near Hospital Entrance 1. When you enter this entrance, you can ask a volunteer to direct or take you back to the surgical waiting area to check in. We appreciate everyone?s understanding of these expected challenges while we build for your future. Report to the Outpatient Waiting Room, entrance under the green pavilion located off [address], at time _0600_ on date _[phone]_. Planned Procedure Time: _0730_.? Time changes happen often and if your time is changed the preop area will call you the afternoon before. - You and your visitor will be asked to self-screen and do not enter if you have any COVID symptoms. Please call surgeon if you need to reschedule. - A mask is optional within the hospital at this time. Patients may have clear liquids (water, carbonated beverages, clear teas, apple juice) until 3 hours prior to surgery with a maximum of 20 ounces. - No food from midnight until time of surgery and no smoking, or chewing tobacco (or any form of nicotine). No chewing gum, candy or mints. Take only the following medications with a SIP of water on the morning of surgery: __Diltiazem, Clonidine and Flonase.____ DO NOT STOP ANY OF YOUR OTHER PRESCRIPTION MEDICATIONS PRIOR TO SURGERY EXCEPT THE FOLLOWING Hold all vitamins and supplements for 3 days per anesthesiologist. Medications to discontinue per physician Date to take last dose Please no make-up, nail comoran, hairspray, perfume, deodorant, or body powder the day of surgery.? No jewelry (including any body piercings) or valuables the day of surgery, leave them at home.? Please take a shower or bath the night before, or the morning of, surgery with an antibacterial soap.? Wear comfortable, loose fitting clothing.? - Jewelry must be removed prior to entering the operating room.? Rings and piercings that are not removed may be cut off. - The hospital will not accept responsibility for valuables.? - Please leave all valuables, including medications, at home the day of surgery. If you are going home after surgery, a licensed new autos delivery driver must drive you home.? - NO public transportation without another adult if you receive anesthesia. - We recommend that an adult stay with you for 24 hours following discharge. - We also recommend that you do not drive, make important decision, drink alcoholic beverages, or take any drugs that were not prescribed by your health care provider for at least 24 hours after your discharge time. Follow any additional instructions given to you from your surgeon. Telephone instructions given to __Donna___and asked if any additional questions and then verbalized understanding. Patient advised to call surgeon office or pre surgery nurse liaison [phone] if any additional questions.
[2025-05-19] MEDS: LACTATED RINGERS 1,000 ML 30 ML IV CONT (06:30)
[2025-05-19 06:45] VITALS: BP 156/84; PULSE 88; RESP 16; TEMP 36.8; O2SAT 98
--- NOTE | 2025-05-19 06:45 | WPDANESEPPF ---
Anes - Initial Pre Proc Eval Procedure: Operation Date: 05/19/25 07:30 Proposed Procedures p Hysteroscopy Dilation and Curettage, Vaginal Wall Biopsy - Wm Crenshaw MD Date/Time: 05/19/25 06:45 Surgeon: Wm Crenshaw MD Pre Op Diagnosis: Post Menopausal Bleed, Vag Wall Lesion Patient Data Age: 69 Gender: F Height: 1.57 m Weight: 54.5 kg Allergies Allergy/AdvReac Type Severity Reaction Status Date / Time No Known Allergies Allergy Verified 05/19/25 05:54 Home Medications ?Medication ?Instructions ?Recorded ?Confirmed ?Type clonidine HCl 0.1 mg tablet 0.1 mg PO TID 05/02/25 05/11/25 History diltiazem HCl 360 mg capsule,24 360 mg PO DAILY 05/02/25 05/11/25 History hr,extended release (Tiazac) fexofenadine 180 mg tablet 180 mg PO DAILY 05/02/25 05/11/25 History (Mily Allergy) fluticasone propionate 50 1 spray intranasal DAILY 05/02/25 05/11/25 History mcg/actuation nasal spray,suspension (Flonase Allergy Relief) hydrochlorothiazide 12.5 mg tablet 12.5 mg PO DAILY 05/02/25 05/11/25 History losartan 100 mg tablet 100 mg PO DAILY 05/02/25 05/11/25 History magnesium oxide 400 mg PO DAILY 05/02/25 05/11/25 History calcium 600 mg capsule 600 mg PO DAILY 05/11/25 05/11/25 History multivitamin (Daily Multi-Vitamin 1 tablet PO DAILY 05/11/25 05/11/25 History tablet) Patient hx anesthesia problems: none Family hx anesthesia problems: none Results Review: All pre-operative results and documents have been reviewed as part of the pre-operative evaluation. [facility] Past Medical History Medical History Hypertension Surgical History Surgical History H/O colonoscopy History of hysteroscopy suction D&C missed AB Family History Family History Mother Heart disease Breast cancer Dementia Uterine cancer H/O ovarian cancer Sibling Breast cancer sister Father Cerebrovascular accident Social History Social History Smoking status: Never smoker Second hand tobacco smoke exposure: No Alcohol intake: never Substance use: never Substance use type: does not use Do You Feel Safe in your Home?: Yes Lack of Transportation: No Lack of Food: Never True Current Housing: Decline to Answer Concerned About Future Housing: Decline to Answer Difficulty Paying Gas/Electric Bills: Decline to Answer Difficulty Paying for Meds: Decline to Answer Currently Unemployed: Decline to Answer Education: Decline to Answer Difficulty w/ Childcare or Family Care: Decline to Answer Living arrangements: with family Additional living arrangements comments: Occupation/Education: occupation Additional occupation/education comments: punch press setter Gender identity (if verbalized by the patient): Female Sexual Orientation (if Verbalized by the Patient): Straight or Heterosexual Spiritual care concerns: No Anes - Eval Final PreProcedure Day of Procedure 05/19/25 06:45 Patient weight: normal Heart: regular rate and rhythm Lungs: clear to auscultation Airway: Mallampati scale class II Neurological: alert and oriented Last oral intake: >/= 8 hours ASA classification: II Emergent: no Anesthetic plan: proceed Anesthesia type and monitoring: general GIVS and standard monitoring Results Review: All pre-operative results and documents have been reviewed as part of the pre-operative evaluation. Informed Consent: The patient's anesthetic plan and its attendant risks and benefits were discussed with the patient/family/POA. Questions were solicited and answers provided to the satisfaction of the patient/family/POA.
[2025-05-19] MEDS: ACETAMINOPHEN 500 MG TABLET 1000 MG PO (07:00)
--- NOTE | 2025-05-19 07:17 | WPDHPUPDATE1 ---
History and Physical Update Update Date/Time: 05/19/25 07:17 History and Physical has been reviewed, including an updated exam of the patient. There are NO changes in the patient's condition. Risks, benefits, and alternatives have been discussed and questions answered. Patient agrees to proceed with procedure.
--- NOTE | 2025-05-19 07:43 | S_PTH ---
PATIENT: Rosy Espinoza LOC: [facility] U#:[id number] AGE/SX: 69/F ROOM: RE05/19/[address]: Wm Crenshaw MD : 1955 BED: DIS: 05/19/2025 SPEC #: [id number] RECD: 05/19/25 08:33 STATUS: SUMMER REQ #: [id number] MARQUES: 05/19/25 07:[address]: Wm Crenshaw DEPT: [facility] Surgical RECD BY: Adriane Ordoñez MLT, ([facility]) ENTERED: 05/19/25 08:33 SP TYPE: Surgical OTHR DR: UNKNOWN,DOCTOR Tissues: A - Endometrial Curettings B - Biopsy Procedures: Hematoxylin and Eosin Stain Gross and Microscopic Level 4
--- NOTE | 2025-05-19 07:54 | W.PM.PROC2 ---
Procedure Note - Detailed Date of Procedure 05/19/25 Pre-op Diagnosis 1. Postmenopausal bleeding 2. Vaginal wall lesion Post-op Diagnosis Same (3. Complete procidentia 4. Hemorrhoid) Procedure Performed 1. Hysteroscopy curettings 2. Vaginal biopsy Surgeon Wm Crenshaw MD Anesthesia MAC Findings Once anesthesia had been induced complete procidentia was noted with coughing. Also hemorrhoid was noted. On hysteroscopic exam small polypoid appearing lesion with general atrophy was noted. Also posterior vaginal wall hyperemia was noted. Description of Procedure Patient was prepped and draped in usual sterile manner for this procedure. Cervix was dilated to allow the hysteroscope place revealed findings as noted above. Curettings of all 4 quadrants were then performed and the polyp the tissue was removed. Vaginal wall hyperemia was then incised and removed and 2-0 chromic running interlocking manner to approximate this tissue and rendered hemostatic. This point the procedure was considered terminated the patient was sent to recovery room in stable condition Estimated Blood Loss 10 Drains No Packing No Pathology Yes Complications No immediate complications Condition Stable Disposition PACU [facility] Billing Surgery - Charge Forward: Surgery Billing
[2025-05-19 07:55] VITALS: BP 105/50; PULSE 54; RESP 14; O2SAT 97
[2025-05-19 08:25] VITALS: BP 108/51; PULSE 52; RESP 20; O2SAT 98
[2025-05-19 08:50] VITALS: BP 129/58; PULSE 52; RESP 18
== END 2025-05-19 08:56 | disposition home or self-care (01) ==
PROVIDERS: Visit Provider Obstetrics & Gynecology
PROC: 0U5B8ZZ Destruction of Endometrium, Via Natural or Artificial Opening Endoscopic (ICD-10-PCS; CPT 58563; principal; 2025-05-19 07:30)
DX: N81.3 Complete uterovaginal prolapse (principal); N84.2 Polyp of vagina; N95.0 Postmenopausal bleeding; K64.9 Unspecified hemorrhoids; D25.9 Leiomyoma of uterus, unspecified
CPT/HCPCS: 57135; 58558; 88305; A9270; J2003; J2405; J2704; J3010; J7120